=== PATIENT | female | born 1985 | race Two or more races ===

== ENCOUNTER 2025-09-23 10:00 | Day surgery (SDC) | payer OTHER ==
[2025-09-15 13:39] VITALS: BP 111/76
[2025-09-15 13:59] LABS: BASO % 0.6 % (0.1-1.2); EOS # 0.20 (0.04-0.54); EOS % 2.5 % (0.7-7.0); LYMPH # 2.54 (1.18-3.74); LYMPH % 31.2 % (19.3-53.1); MEAN PLATELET VOLUME 9.70 fl (9.4-12.4); MONO # 0.51 (0.24-0.82); MONO % 6.3 % (4.7-12.5); NEUT # 4.83 (1.56-6.13); NEUT % 59.3 % (34.0-71.1); RED CELL DISTRIBUTION WIDTH 11.3 % (11.6-14.4)
[2025-09-15 14:08] LABS: URINE APPEARANCE Clear; URINE BILIRRUBIN Negative (NEGATIVE); URINE BLOOD Negative; URINE COLOR Yellow; URINE GLUCOSE Negative (NEGATIVE); URINE KETONE Negative (NEGATIVE); URINE LEUKOCYTE Negative; URINE NITRATE Negative; URINE PROTEIN Negative (NEGATIVE); URINE UROBILINOGEN 0.2 E.U./dl
[2025-09-15 14:09] LABS: URINE BACTERIA 2027.7 uL (0.0-1933); URINE EPITHELIAL CELLS 23.9 uL (0.0-38.8); URINE RBC 21.9 uL (0.0-20.8); URINE WBC 10.9 uL (0.0-23.2)
[2025-09-15 14:19] LABS: URINE CAST 1.02 uL (0.0-1.40)
[2025-09-15 14:36] LABS: INR 1.06
[2025-09-15 14:45] LABS: ALT/SGPT 17.0 U/L (12-78); AST/SGOT 12.0 U/L (15-37); BILIRUBIN TOTAL 0.62 mg/dL (0.3-1.2); BUN CREA RATIO 15.0 (7.0-25.0); CREATININE SERUM 0.68 mg/dL (0.55-1.02); GFR 95.83; GLOBULINA 3.6 G/DL (2.4-3.5); GLUCOSE FASTING 95.0 mg/dL (65-100); OSMOLALITY SERUM 278.0 MOSM/KG (275-295)
[~2025-09-23] VITALS: Ht 167.6 cm; Wt 69.9 kg
[2025-09-23] MEDS ORDERED: POVIDONE-IODINE 118 ML BOTT TOP ONE (11:35)
== END 2025-09-23 18:50 | disposition home or self-care (01) ==
LOC: CIR.AMB 10:00
PROVIDERS: ATTEND Student in an Organized Health Care Education/Training Program
DX: N93.8 Other specified abnormal uterine and vaginal bleeding (principal); N83.292 Other ovarian cyst, left side; R10.20 Pelvic and perineal pain unspecified side